=== PATIENT | female | born 1990 | race Caucasian/White ===

== ENCOUNTER 2019-06-23 00:41 | Emergency (ER) | payer OTHER ==
[~2019-06-23] VITALS: Ht 144.8 cm; Wt 50.3 kg
[2019-06-23 00:45] VITALS: Ht 144.8 cm; Wt 50.3 kg
[2019-06-23 03:39] VITALS: BP 125/79
== END 2019-06-23 03:39 | disposition left against medical advice (07) ==
LOC: ED 00:41
DX: Z53.21 Procedure and treatment not carried out due to patient leaving prior to being seen by health care provider (principal)